=== PATIENT | female | born 1960 | race Caucasian/White ===

== ENCOUNTER → 2016-11-25 | Outpatient (CLI) | payer OTHER | LOC: LAB 13:26 | PROVIDERS: ATTEND Internal Medicine Medical Oncology | DX: D68.59 Other primary thrombophilia (principal); R91.8 Other nonspecific abnormal finding of lung field; I82.403 Acute embolism and thrombosis of unspecified deep veins of lower extremity, bilateral | CPT/HCPCS: 36415; 81240; 81241; 83090; 85300; 85610; 85613; 85730; 86147 ==